=== PATIENT | female | born 1975 | race Caucasian/White ===

== ENCOUNTER → 2021-03-27 | Day surgery (SDC) | payer OTHER ==
[~2021-03-27] VITALS: Ht 160 cm; Wt 78.5 kg
[~2021-03-27] MED LIST: FLUOXETINE HCL20 MG PO
[2021-03-27 09:19] LABS: HCG (URINE) SCREEN NEGATIVE (NEGATIVE)
[2021-03-27 09:56] LABS: HCT 42.4 % (37.0-47.0); HGB 14.1 g/dl (12.5-16.0); MCH 30.7 pg (25.0-31.0); MCHC 33.3 g/dL (32.0-36.0); MCV 92.4 fL (78.0-100.0); RBC 4.59 M/uL (4.20-5.40); RDW 12.1 % (11.5-14.0); WBC 5.6 K/uL (4.0-10.5)
[2021-03-27 10:14] LABS: ALBUMIN 3.7 g/dL (3.4-5.0); BUN/CREAT RATIO (CALC) 12.5 RATIO; CREATININE 0.72 mg/dL (0.51-0.95); GLOBULIN (CALCULATION) 3.8 g/dL; POTASSIUM 4.1 mmol/L (3.5-5.1); TOTAL PROTEIN 7.5 g/dL (6.4-8.2)
== END | disposition home or self-care (01) ==
LOC: FAS 08:47
PROVIDERS: Surgery
DX: K29.50 Unspecified chronic gastritis without bleeding (principal); K52.832 Lymphocytic colitis; K21.00 Gastro-esophageal reflux disease with esophagitis, without bleeding; R19.7 Diarrhea, unspecified; R19.4 Change in bowel habit; R12 Heartburn; Z88.2 Allergy status to sulfonamides; Z88.0 Allergy status to penicillin; Z20.822 Contact with and (suspected) exposure to COVID-19
CPT/HCPCS: 36415; 80053; 84703; J2250; J2704; J7120